=== PATIENT | male | born 1960 | race Caucasian/White ===

== ENCOUNTER 2021-04-03 15:58 | Emergency (ER) | payer OTHER ==
[~2021-04-03 15:58] MED LIST: ERYTHROMYCIN O3.5 GM OD
[2021-04-03] MEDS ORDERED: AMOXICILLIN875 MG PO (17:34)
== END 2021-04-03 17:55 | disposition home or self-care (01) ==
LOC: ER1 15:58
DX: J02.0 Streptococcal pharyngitis (principal); I10 Essential (primary) hypertension; Z20.822 Contact with and (suspected) exposure to COVID-19
CPT/HCPCS: 87081; 87880; 99283; U0002